=== PATIENT | female | born 1955 | race Two or more races ===

== ENCOUNTER → 2024-04-15 | Outpatient (CLI) | payer MEDICARE, SELFPAY ==
[2024-04-15 11:44] LABS: Collection Type, Urine Clean Catch
[2024-04-15 12:55] LABS: Basophils % (Auto) 0 % (0-2.5); Eosinophils % (Auto) 0 % (0-10); Hematocrit 34.9 % (36.0-46.0); Hemoglobin 11.5 g/dL (12.0-16.0); Immature Granulocytes % (Auto) 0 % (0-0); Immature Granulocytes Auto 0.01 Thou/mm3 (0.00-0.00); Lymphocytes # (Auto) 1.5 Thou/mm3 (1.0-4.8); Lymphocytes % (Auto) 29 % (10-50); Mean Corpuscular Volume 88 fL (80-100); Monocytes # (Auto) 0.3 Thou/mm3 (0.0-0.8); Monocytes % (Auto) 6 % (0-12); Neutrophils # (Auto) 3.2 Thou/mm3 (1.8-7.7); Neutrophils % (Auto) 64 % (37-80); Nucleated Red Blood Cell % 0 /100 WBC (0); Platelet Count 175 Thou/mm3 (140-440); RDW Standard Deviation 43.6 fL (36.4-46.3); Red Blood Count 3.97 Miln/mm3 (4.00-5.20)
[2024-04-15 13:16] LABS: Albumin, Serum 4.4 gm/dL (3.4-4.8); Anion Gap 10 (7-16); BUN/Creatinine Ratio 17 Ratio (12-20); Blood Urea Nitrogen 38 mg/dL (9-23); Calcium 9.1 mg/dL (8.3-10.6); Calcium (Corrected) 9.1 mg/dL (8.5-10.1); Chloride 102 mMol/L (98-107); Creatinine (Component) 2.3 mg/dL (0.6-1.3); Glucose 98 mg/dL (74-106); Osmolality,Calculated 284 (275-295); Phosphorous 4.8 mg/dL (2.4-5.1); Potassium 4.3 mMol/L (3.4-5.1); Sodium 138 mMol/L (136-145); eGFR 23 See Note
[2024-04-15 13:29] LABS: Bacteria,Urine Rare; Bilirubin,Urine Negative (Negative); Blood,Urine Trace (Negative); Clarity,Urine Turbid (Clear/Hazy); Color,Urine Yellow (Lt Yel-Yel); Glucose, Urine Negative (Negative); Ketones,Urine Negative (Negative); Leukocyte Esterase,Urine Positive (Negative); Nitrite,Urine Negative (Negative); Protein,Urine Trace (Neg - Trace); RBC,Urine 5 /hpf (0-3); Specific Gravity,Urine 1.015 (1.001-1.035); Squamous Epithelial Cell,Urine < 1 /hpf (0-5); Urobilinogen,Urine Negative mg/dL (0.0-1.0); WBC,Urine 720 /hpf (0-5)
[2024-04-15 14:40] LABS: Parathyroid Hormone Intact 73.2 pg/ml (18.5-88.0)
== END | disposition home or self-care (01) ==
LOC: COPL 11:15
PROVIDERS: PCP Internal Medicine; Referring Provider Internal Medicine Nephrology; Visit Provider Internal Medicine Nephrology
DX: E55.9 Vitamin D deficiency, unspecified (principal)
CPT/HCPCS: 36415; 80069; 81001; 82306; 83970; 85025

== ENCOUNTER 2024-04-25 09:17 | Emergency (ER) | payer MEDICARE, SELFPAY ==
[2024-04-25 09:40] VITALS: BP 161/82; PULSE 84; PULSE 92; RESP 20; TEMP 36.4; O2SAT 96
[2024-04-25 09:45] VITALS: BMI 22.2
[2024-04-25 09:54] VITALS: PULSE 80
--- NOTE | 2024-04-25 09:55 | EKG_ITS ---
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
--- NOTE | 2024-04-25 10:33 | XR_ITS ---
Examination: CT abdomen and pelvis without contrast. Coronal 3-D reconstructions. Sagittal 2-D reconstructions. Date and time of exam:April 25, 2024 1123 hours Comparison October 23, 2023 INDICATIONS: Bilateral flank pain nausea vomiting beginning this morning CTDI: vol (mGy): 5.18 DLP: (mGycm): 272 Technique: Axial images of the abdomen have been obtained, 3 mm slice thickness Intravenous contrast material has not been administered. Low dose protocols were performed. One or more of the following dose reduction techniques were used; automated exposure control, adjustment of the mA and/or KV according to patient size, use of iterative reconstruction technique. Findings: No focal liver or splenic lesions Mildly distended gallbladder No pancreatic mass Aorta normal size No renal or ureteral calculi, minimal hydronephrosis Significant colonic ileus, fluid-filled Small bowel loops also appear fluid distended Distended urinary bladder with retroverted uterus Urinary bladder wall thickened up to 4 mm Severe osteopenia with advanced disc narrowing L4-L5 IMPRESSION: Prominent colonic and less prominent small bowel ileus Recommend 3 way abdominal series follow-up Distended urinary bladder, clinical correlation advised with mild urinary bladder wall thickening No renal or ureteral calculi, minimal hydronephrosis
--- NOTE | 2024-04-25 10:37 | PD.EDBACK ---
ED Back Injury Pain RME/HPI General Chief Complaint: Back Pain/Injury Stated Complaint: N/V Time Seen by Provider: 04/25/24 10:00 Arrival date/time: 04/25/24 09:17 RME / HPI RME / HPI Narrative: Patient is a 68-year-old female with past medical history of hypertension, hypothyroidism, and CKD who came to the ED on 04/25/2024 due to bilateral flank pain with associated nausea, vomiting, and diarrhea which started around 8 am this morning. Patient endorsed 1 episode of diarrhea and vomiting of clear, yellow contents. She had a small coffee and donut this morning. Patient's present at bedside, states that patient has been having similar episodes for about 6 years with extensive workup done including CT scans, EGD, and colonoscopy but patient has not been diagnosed with any disorders other than possible irritable bowel syndrome. Patient takes Zofran as needed for nausea episodes and had Zofran x1 prior to arrival without improvement of symptoms. Related Data Home Medications ?Medication ?Instructions ?Recorded ?Confirmed Levothyroxine * (SYNTHROID *) 1 tab PO QDAY Thyroid ##30 02/23/17 10/23/23 valsartan 160 mg tablet 160 mg PO DAILY 10/23/23 10/23/23 ergocalciferol (vitamin D2) 1,250 1,250 mcg PO QWEEK 10/24/23 10/24/23 mcg (50,000 unit) capsule (Vitamin D2) tramadol 50 mg tablet 50 mg PO Q8H PRN Pain, Severe 10/24/23 10/24/23 Previous Rx's ?Medication ?Instructions ?Recorded ondansetron 4 mg disintegrating 4 mg PO Q8H PRN nausea and 10/25/23 tablet vomiting #20 tabs Allergies Allergy/AdvReac Type Severity Reaction Status Date / Time No Known Allergies Allergy Verified 10/25/23 20:24 Past Medical History Past Medical History Comments PMH COMMENT: Past Medical History: Hypertension, hypothyroidism, and CKD Family History: No family history of kidney stones, Surgical History: , appendectomy, urethral dilation Social History: Denies history of smoking, denies current alcohol use, denies recreational drug use Current Medications: (Source: ) Allergies: No known drug allergies Course Orders Category Date Time Status EKG (ED ONLY) *Do not use* NOW Care 04/25/24 09:55 Completed Zeng [Urinary Catheter] QS Care 04/25/24 12:[address] abdomen pelvis wo con Stat Exams 04/25/24 10:33 Completed EKG (ED Only) Stat Exams 04/25/24 09:55 Draft XR abdomen series w chest 1V Stat Exams 04/25/24 12:04 Completed CBC Stat Lab 04/25/24 10:50 Completed CMP [Comprehensive Metabolic Panel] Stat Lab 04/25/24 10:50 Completed Lactic Acid [Lactate (Lactic Acid)] Stat Lab 04/25/24 10:50 Completed Lipase Stat Lab 04/25/24 10:50 Completed TSH [Thyroid Stimulating Hormone] Stat Lab 04/25/24 10:50 Completed Troponin I Stat Lab 04/25/24 10:50 Completed Urinalysis, C/S if Indicated Stat Lab 04/25/24 11:16 Completed Urine Culture Stat Lab 04/25/24 11:16 Received HYDROmorphone INJ [Dilaudid Inj] Med 04/25/24 12:14 Discontinued 0.5 mg IVP X1 ONE HYDROmorphone INJ [Dilaudid Inj] Med 04/25/24 10:30 Discontinued 1 mg IVP X1 ONE Ondansetron Inj [Zofran Inj] Med 04/25/24 10:30 Discontinued 4 mg IV X1 ONE Ringers Lactated 1000 ml [Lactated Ringers] 1,000 ml Med 04/25/24 12:14 Discontinued IV 999 mls/hr cefTRIAXone [Rocephin] 1,000 mg Med 04/25/24 14:30 Discontinued Sodium Chloride 0.9% (P) [Ns 0.9% (P)] 50 ml IV X1 cefTRIAXone/D5w 1gm IV premix [Rocephin/D5w 1gm IV Med 04/25/24 12:33 Discontinued premix] 50 ml IV X1 Vital Signs Vital signs: Vital Signs Temperature 97.5 F 04/25/24 09:40 Pulse Rate 84 04/25/24 09:40 Respiratory Rate 20 04/25/24 09:40 Blood Pressure 161/82 H 04/25/24 09:40 Pulse Oximetry (%) 96 04/25/24 09:40 Oxygen Delivery Method Room Air 04/25/24 09:40 Back Pain / Injury Medications / Prescriptions Medication administrations:: Medication Administration History Discontinued Medications Hydromorphone HCl (Hydromorphone Inj 2 Mg/Ml Vial) 1 mg IVP X1 ONE Stop: 04/25/24 10:31 Last Admin: 04/25/24 10:51 Dose: 1 mg Documented By: TERESA Hydromorphone HCl (Hydromorphone Inj 2 Mg/Ml Vial) 0.5 mg IVP X1 ONE Stop: 04/25/24 12:15 Last Admin: 04/25/24 12:27 Dose: 0.5 mg Documented By: SUSHIL Lactated Ringer's (Lactated Ringers) 1,000 mls @ 999 mls/hr IV .Q1H1M ONE Stop: 04/25/24 13:14 Last Infusion: 04/25/24 13:49 Dose: Infused Documented By: Admin: 04/25/24 12:29 Dose: 999 mls/hr Documented By: SUSHIL Ceftriaxone Sodium/Dextrose (Rocephin/D5w 1gm Iv Premix) 50 mls @ 100 mls/hr IV X1 ONE Stop: 04/25/24 13:02 Last Admin: 04/25/24 14:34 Dose: Not Given Documented By: SUSHIL Non-Admin Reason: Duplicate Medication on eMAR Ceftriaxone Sodium 1,000 mg/ (Sodium Chloride) 50 mls @ 100 mls/hr IV X1 ONE Stop: 04/25/24 14:59 Last Infusion: 04/25/24 15:30 Dose: Infused Documented By: Admin: 04/25/24 14:36 Dose: 100 mls/hr Documented By: SUSHIL Ondansetron HCl (Ondansetron Inj 2 Mg/Ml Inj 2 Ml) 4 mg IV X1 ONE; Protocol Stop: 04/25/24 10:31 Last Admin: 04/25/24 10:50 Dose: 4 mg Documented By: TERESA Discharge Plan Prescriptions/Referrals Prescriptions/Med Rec: No Action Levothyroxine * (SYNTHROID *) 175 MCG tablet 1 tab PO QDAY Qty: 30 valsartan 160 mg tablet 160 mg PO DAILY tramadol 50 mg Tablet 50 mg PO Q8H PRN (Reason: Pain, Severe) ergocalciferol (vitamin D2) [Vitamin D2] 1,250 mcg (50,000 unit) Capsule 1,250 mcg PO QWEEK ondansetron 4 mg tablet,disintegrating 4 mg PO Q8H PRN (Reason: nausea and vomiting) Qty: 20 0RF Referrals: Eva Wahl MD [Primary Care Provider] - In 1 week Patient/Caregiver Discharge Instructions Print Language: Kazakh
[2024-04-25] MEDS: ONDANSETRON INJ 2 MG/ML INJ 2 ML 4 MG IV (10:50)
[2024-04-25] MEDS: HYDROmorphone INJ 2 MG/ML VIAL 1 MG IVP (10:51)
[2024-04-25 10:56] LABS: Lactate (Lactic Acid) 1.5 mMol/L (0.4-2.0)
[2024-04-25 11:00] VITALS: BP 161/83; PULSE 90; RESP 12; TEMP 36.7; O2SAT 97
[2024-04-25 11:05] LABS: Basophils % (Auto) 0 % (0-2.5); Eosinophils % (Auto) 0 % (0-10); Hematocrit 33.3 % (36.0-46.0); Hemoglobin 11.6 g/dL (12.0-16.0); Immature Granulocytes % (Auto) 0 % (0-0); Immature Granulocytes Auto 0.02 Thou/mm3 (0.00-0.00); Lymphocytes # (Auto) 0.7 Thou/mm3 (1.0-4.8); Lymphocytes % (Auto) 10 % (10-50); Mean Corpuscular HGB Conc 34.8 g/dl (31.0-37.0); Mean Corpuscular Volume 86 fL (80-100); Monocytes # (Auto) 0.3 Thou/mm3 (0.0-0.8); Monocytes % (Auto) 4 % (0-12); Neutrophils # (Auto) 5.6 Thou/mm3 (1.8-7.7); Neutrophils % (Auto) 85 % (37-80); Nucleated Red Blood Cell % 0 /100 WBC (0); Platelet Count 168 Thou/mm3 (140-440); RDW Standard Deviation 42.6 fL (36.4-46.3); Red Blood Count 3.87 Miln/mm3 (4.00-5.20); White Blood Count 6.6 Thou/mm3 (3.6-11.0)
[2024-04-25 11:21] LABS: Collection Type, Urine Catheter
[2024-04-25 11:26] LABS: Alanine Aminotransferase 21 U/L (10-49); Albumin, Serum 4.3 gm/dL (3.4-4.8); Albumin/Globulin Ratio 1.6 (1.2-2.2); Alkaline Phosphatase 82 U/L (46-116); Anion Gap 11 (7-16); Aspartate Amino Transferase 23 U/L (0-34); BUN/Creatinine Ratio 14 Ratio (12-20); Bilirubin,Total 0.5 mg/dL (0.3-1.2); Blood Urea Nitrogen 27 mg/dL (9-23); Calcium 9.7 mg/dL (8.3-10.6); Calcium (Corrected) 9.7 mg/dL (8.5-10.1); Carbon Dioxide 19.1 mMol/L (20.0-31.0); Chloride 110 mMol/L (98-107); Estimated Creatinine Clearance 18.6 mL/min (>60); Globulin 2.7 gm/dL (2.3-3.5); Glucose 147 mg/dL (74-106); Lipase 48 U/L (12-53); Osmolality,Calculated 287 (275-295); Potassium 4.5 mMol/L (3.4-5.1); Sodium 140 mMol/L (136-145); Thyroid Stimulating Hormone 2.56 uIU/mL (0.55-4.78); Troponin I < 0.020 ng/mL (0.0-0.045); eGFR 27 See Note
[2024-04-25 11:34] LABS: Bacteria,Urine 4+; Bilirubin,Urine Negative (Negative); Blood,Urine 1+ (Negative); Clarity,Urine Clear (Clear/Hazy); Color,Urine Lt-Yellow (Lt Yel-Yel); Glucose, Urine Negative (Negative); Ketones,Urine Trace (Negative); Leukocyte Esterase,Urine Positive (Negative); Nitrite,Urine Negative (Negative); PH,Urine 5.5 (5.0-7.0); Protein,Urine Trace (Neg - Trace); RBC,Urine 1 /hpf (0-3); Squamous Epithelial Cell,Urine < 1 /hpf (0-5); Urobilinogen,Urine Negative mg/dL (0.0-1.0); WBC,Urine 33 /hpf (0-5)
[2024-04-25 11:38] LABS: Culture Indicated,Urine Yes
--- NOTE | 2024-04-25 12:04 | XR_ITS ---
Examination: Abdominal series 3 views including upright AP chest TECHNIQUE: AP upright chest, AP upright AP supine abdomen total 3 views Exam date and time: April 25, 2024 1222 hours INDICATIONS: Abdominal pain FINDINGS: Significant colonic ileus Mild small bowel ileus No definite obstruction No free air Normal heart size Lungs are clear IMPRESSION: Significant colonic ileus Mild small bowel ileus
[2024-04-25] MEDS: HYDROmorphone INJ 2 MG/ML VIAL 0.5 MG IVP (12:27)
[2024-04-25] MEDS: RINGERS LACTATED 1000 ML 1,000 ML 999 ML IV (12:29)
[2024-04-25] MEDS: cefTRIAXone 1,000 MG in SODIUM CHLORIDE 0.9% (P) 50 ML 100 MG IV (14:36)
--- NOTE | 2024-04-25 15:01 | PD.EDADDENDU ---
Emergency Room Addendum Addendum Narrative: The resident physician Dr. Hammond consulted with me regarding this patient. The patient is nausea and vomiting. Abdomen is distended. CT abdomen and pelvic and abdominal series x-rays were done. Please see report from Dr. Brant Castano. I think the patient should be admitted for further evaluation treatment IV fluid and n.p.o. and NG tube. However when I spoke to Dr. mckoy, hospitalist on-call. He absolutely rejected my request for admission. And he is very adamant that the patient can go home he said that he could write me a note Diagnosis: Abdominal distention Significant colonic ileus Small bowel ileus Vomiting Urinary retention 1600ml Condition: Admission was rejected by hospitalist dr mckoy
--- NOTE | 2024-04-25 16:42 | ESCONSULT_ITS ---
<Statement entered by Zhen Moran MD - 05/08/24 08:00> I reviewed above note and agree with findings and plans. I have also personally examined the patient with medicine team and went over assessment and plan with medical team including management intern and resident physician. HPI Data of Consult Primary Care Provider: Eva Wahl MD Consult Narrative History of present illness: Mariela is a 68 y/o female with PMHx hypertension, hypothyroidism, CKD, ? IBS, chronic UTI, urinary retention (and self caths), hemorrhagic cystitis (2018), and hypothyroidism who is here for an evaluation of nausea, vomiting, diarrhea, and abdominal pain (radiating to the back) and distention. Patient reports she has been having on and off symptoms of nausea and vomiting and diarrhea since 2021. She reports that she has lost about 90 pounds within that timeframe. She says that she has trouble eating and has not been able to enjoy typical foods, and usually eats Jell-O, soups and broths. She says that she was able to pass gas this morning and had a bowel movement that was diarrhea consistent. She is just that she has been having nausea and some vomiting that was nonbloody as well but says she had 3 episodes. She says she has had similar symptoms to this including 1 in October she was admitted for similar symptoms and was not given an NG tube and impossible discussion included diagnosis of SBO but it seems that patient did not get NG tube nor surgical intervention. She denies any recent travel, and sicknesses. She denies any associated fever, chills, chest pain, shortness of breath. She does say that she deals with chronic urinary retention and is going to see a subspecialty urologist in which her urologist is going to send her to in [place]. She says she still has not done this. She also says that she self caths herself every day. She also says that when she was in the 70s that she had to have some form of catheterization done but does not exactly member what happened. She currently says that her abdominal pain/distention has improved after she got a Zeng catheter in. She also says that she had a colonoscopy not too long ago in 2016 and 2019 in which they had diagnosed her with IBS but had no other pertinent findings. She is in between switching ep technologist at this time. She is also seeing LOUISE Infante in [place] currently. She also says that she is post get a CT scan of her abdomen pelvis to be done by her primary care doctor. She also says that she has chronic UTIs and takes Bactrim every day for it. She has no other complaints at this time ED Course: Patient arrived with a temperature of 97.5, heart rate 84, respiratory rate of 20, blood pressure 161/82, saturating 96% room air. She was worked up was found to have a white count of 6.6, hemoglobin 11.6, sodium 140, potassium 4.5, chloride 110, bicarb of 19, BUN/creatinine of 27 2.0, glucose of 147, lactate of 1.5, troponin negative x 1, AST ALT 23 and 21 respectively, lipase of 48. CT abdomen pelvis showed distended bladder and prominent small bowel ileus but no stones. Chest abdomen x-ray showed significant colonic ileus, mild small bowel ileus. Urine analysis showed +4 bacteria. She was given Dilaudid 1.5 mg and medicine was consulted. PMHx: As above Surgeries: Appendectomy, Cystoscopy Meds: Vitamin D, Bactrim, tramadol, Zofran, ferrous sulfate, Synthroid 150 mcg, folic acid, valsartan 160, diphenoxylate atropine Allergies: No known allergies Family history: Mother had diabetes, stroke and heart attack. Social history: Born in [facility], lived in [place] throughout her entire life. 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 She retired about 3 years ago because she was sick. She has no kids, however has been to her . She lives in [place]. Denies any drug history including IV and oral, was never a heavy drinker no smoking history. Limited exercise due to patient being weak. Ate mainly soft foods. cc:: cc: Review of Systems Review of Systems Narrative Review of Systems: 12 point ROS was reviewed and otherwise negative unless stated directly in the HPI Exam Vital Signs Temp Pulse Resp BP Pulse Ox O2 Del Method 98.1 F 90 12 161/83 H 97 Room Air 04/25/24 11:00 04/25/24 11:00 04/25/24 11:04/25/24 11:00 04/25/24 11:00 04/25/24 11:00 Narrative Exam General: AAOx3, NAD, pleasant woman, looks frail, low muscle density HEENT: Dry mucous membranes, conjunctiva clear, EOMI, PERRLA, Cardiovascular: S1, S2, radial pulses +2 bilat, RRR, no clavicular muscle Pulmonary: CTAB bilat no cough, no wheezing GI: Bowels sounds heard, abdomen soft, no tenderness to palpitation : Zeng catheter in Extremities: No presence of trace or pitting edema in lower extremities bilaterally, dorsalis pedis pulses +2 bilaterally Neuro: AAOx3, no focal motor or sensory deficits in the UE or LE bilat Psych: Good judgement, thought and behavior. Cooperative Results Labs 04/25/24 10:50 04/25/24 10:50 Labs: Short CBC 04/25/24 Range/Units 10:50 WBC 6.6 (3.6-11.0) Thou/mm3 Hgb 11.6 L (12.0-16.0) g/dL Hct 33.3 L (36.0-46.0) % Plt Count 168 (140-440) Thou/mm3 BMP 04/25/24 10:50 Sodium 140 Potassium 4.5 Chloride 110 H Carbon Dioxide 19.1 L BUN 27 H Creatinine 2.0 H Glucose 147 H Calcium 9.7 Cardiac Enzymes 04/25/24 Range/Units 10:50 Troponin I < 0.020 (0.0-0.045) ng/mL Liver Function 04/25/24 Range/Units 10:50 Total Bilirubin 0.5 (0.3-1.2) mg/dL AST 23 (0-34) U/L ALT 21 (10-49) U/L Alkaline Phosphatase 82 (46-116) U/L Albumin 4.3 (3.4-4.8) gm/dL Urine 04/25/24 Range/Units 11:16 Urine Color Lt-Yellow (Lt Yel-Yel) Urine Clarity Clear (Clear/Hazy) Urine pH 5.5 (5.0-7.0) Ur Specific Inez 1.010 (1.001-1.035) Urine Protein Trace (Neg - Trace) Urine Glucose (UA) Negative (Negative) Quality Measures Quality Measures VTE prophylaxis Advance care planning discussed with:: patient Medications Home Medications and Allergies Home Medications ?Medication ?Instructions ?Recorded ?Confirmed ?Type Levothyroxine * (SYNTHROID *) 1 tab PO QDAY Thyroid ## 30 02/23/17 10/23/23 History valsartan 160 mg tablet 160 mg PO DAILY 10/23/23 History ergocalciferol (vitamin D2) 1,250 1,250 mcg PO QWEEK 0 10/24/23 10/24/23 History mcg (50,000 unit) capsule (Vitamin D2) tramadol 50 mg tablet 50 mg PO Q8H PRN Pain, Sever e 10/24/23 10/24/23 History Allergies Allergy/AdvReac Type Severity Reaction Status Date / Time No Known Allergies Allergy Verified 10/25/23 20:24 Visit Medications Discontinued Medications Hydromorphone HCl (Hydromorphone Inj 2 Mg/Ml Vial) 1 mg IVP X1 ONE Stop: 04/25/24 10:31 Last Admin: 04/25/24 10:51 Dose: 1 mg Hydromorphone HCl (Hydromorphone Inj 2 Mg/Ml Vial) 0.5 mg IVP X1 ONE Stop: 04/25/24 12:15 Last Admin: 04/25/24 12:27 Dose: 0.5 mg Lactated Ringer's (Lactated Ringers) 1,000 mls @ 999 mls/hr IV .Q1H1M ONE Stop: 04/25/24 13:14 Last Infusion: 04/25/24 13:49 Dose: Infused Ceftriaxone Sodium/Dextrose (Rocephin/D5w 1gm Iv Premix) 50 mls @ 100 mls/hr IV X1 ONE Stop: 04/25/24 13:02 Last Admin: 04/25/24 14:34 Dose: Not Given Ceftriaxone Sodium 1,000 mg/ (Sodium Chloride) 50 mls @ 100 mls/hr IV X1 ONE Stop: 04/25/24 14:59 Last Admin: 04/25/24 14:36 Dose: 100 mls/hr Ondansetron HCl (Ondansetron Inj 2 Mg/Ml Inj 2 Ml) 4 mg IV X1 ONE; Protocol Stop: 04/25/24 10:31 Last Admin: 04/25/24 10:50 Dose: 4 mg Assessment & Plan Plan Mariela is a 68 y/o female with PMHx hypertension, hypothyroidism, CKD, ? IBS, chronic UTI, urinary retention (and self caths), hemorrhagic cystitis (2019), and hypothyroidism who is here for an evaluation of nausea, vomiting, diarrhea, and abdominal pain (radiating to the back) and distention. #Chronic urinary retention #History of IBS #Abdominal distention, resolved?SBO ruled out Patient endorses a history of chronic urinary retention is supposed to see a subspecialist in urology, but is pending referral from her current urologist in [place] She does say that she self caths herself for chronic urinary retention Once given Zeng catheter, patient's symptoms had improved drastically and abdominal distention went down On imaging it was shown that her bladder was distended and we believe at this time that abdominal distention was related to possible bladder outlet obstruction As patient was passing gas, had bowel movement this morning that was diarrhea, we have low suspicion that patient has small bowel obstruction Patient has been admitted recently here before in October for similar symptoms and did not have small bowel obstruction in the past on most recent visit For patient's nausea and vomiting, and oral intake, we believe this is chronic and and likely related to IBS We recommend patient to continue seeing outpatient GI for further management of symptoms As patient is able to tolerate p.o. we do not recommend admission at this time Lipase was unremarkable, able to rule out pancreatitis as well Plan: ?Recommend to continue with Zeng upon discharge before she sees urologist ?Feed patient to see if she tolerates p.o. ?Continue taking medicines as prescribed ?Follow-up with urology ?Follow-up with GI ?Return to ER if symptoms worsen or return Patient seen and care discussed with my senior resident, Dr. Parra , and my attending physician, Dr. Luisa Chase, PGY-1
[2024-04-25 17:00] VITALS: BP 116/68; PULSE 87; RESP 17; TEMP 36.7; O2SAT 98
[2024-04-25 18:37] VITALS: PULSE 78; RESP 16; O2SAT 99
== END 2024-04-25 18:38 | disposition home or self-care (01) ==
PROVIDERS: Student in an Organized Health Care Education/Training Program; Emergency Provider Emergency Medicine; PCP Internal Medicine
DX: K56.7 Ileus, unspecified (principal); R33.9 Retention of urine, unspecified; R94.31 Abnormal electrocardiogram [ECG] [EKG]; I12.9 Hypertensive chronic kidney disease with stage 1 through stage 4 chronic kidney disease, or unspecified chronic kidney disease; N18.9 Chronic kidney disease, unspecified
CPT/HCPCS: 51702; 36415; 74022; 74176; 80053; 81001; 83605; 83690; 84443; 84484; 85025; 87077; 87086; 87186; 93005; 96361; 96365; 96375; 96376; 99284; J0696; J2405; J3490; J7050; J7120

== ENCOUNTER → 2024-05-14 | Outpatient (CLI) | payer MEDICARE, SELFPAY ==
--- NOTE | 2024-05-14 15:30 | XR_ITS ---
Examination: Screening digital mammography, bilateral Computer aided detection 3-D breast Tomosynthesis, bilateral Date and time of exam: May 14, 2024 1531 hours Compared to mammograms dating to September 28, 2015 Indication: Screening Technique: Nonmagnified MLO, CC views of the breasts to been obtained, reconstructed from 3-D Tomosynthesis images. R2 computer aided detection program utilized for evaluation of suspicious masses and/or abnormal calcifications. 3-D Tomosynthesis images obtained. Findings: The breasts are extremely dense, which limits the sensitivity of mammography Again noted focal asymmetry, likely glandular tissue upper outer right breast Benign calcifications Impression: BI-RADS Category 0: Incomplete: Need additional imaging evaluation Recommend bilateral breast sonography follow-up given the extremely dense breast architecture and focal asymmetry in the upper outer right breast
== END | disposition home or self-care (01) ==
LOC: CDIM 15:21
PROVIDERS: Referring Provider Internal Medicine; Visit Provider Internal Medicine
DX: Z12.31 Encounter for screening mammogram for malignant neoplasm of breast (principal); R92.343 Mammographic extreme density, bilateral breasts; N64.89 Other specified disorders of breast
CPT/HCPCS: 77063; 77067

== ENCOUNTER → 2024-05-20 | Outpatient (CLI) | payer MEDICARE, SELFPAY ==
[2024-05-20 11:32] LABS: Basophils % (Auto) 0 % (0-2.5); Eosinophils % (Auto) 1 % (0-10); Hematocrit 31.3 % (36.0-46.0); Hemoglobin 10.4 g/dL (12.0-16.0); Immature Granulocytes % (Auto) 0 % (0-0); Immature Granulocytes Auto 0.02 Thou/mm3 (0.00-0.00); Lymphocytes # (Auto) 1.2 Thou/mm3 (1.0-4.8); Lymphocytes % (Auto) 23 % (10-50); Mean Corpuscular HGB Conc 33.2 g/dl (31.0-37.0); Mean Corpuscular Hemoglobin 29.5 pg (25.0-35.0); Mean Corpuscular Volume 89 fL (80-100); Monocytes # (Auto) 0.4 Thou/mm3 (0.0-0.8); Monocytes % (Auto) 7 % (0-12); Neutrophils # (Auto) 3.6 Thou/mm3 (1.8-7.7); Neutrophils % (Auto) 69 % (37-80); Nucleated Red Blood Cell % 0 /100 WBC (0); Platelet Count 182 Thou/mm3 (140-440); RDW Standard Deviation 45.1 fL (36.4-46.3); Red Blood Count 3.53 Miln/mm3 (4.00-5.20); White Blood Count 5.2 Thou/mm3 (3.6-11.0)
[2024-05-20 11:51] LABS: Amylase 134 U/L (30-118); Anion Gap 7 (7-16); BUN/Creatinine Ratio 14 Ratio (12-20); Blood Urea Nitrogen 21 mg/dL (9-23); Carbon Dioxide 27.1 mMol/L (20.0-31.0); Chloride 106 mMol/L (98-107); Creatinine (Component) 1.5 mg/dL (0.6-1.3); Glucose 91 mg/dL (74-106); Lipase 56 U/L (12-53); Osmolality,Calculated 282 (275-295); Phosphorous 4.5 mg/dL (2.4-5.1); Potassium 4.3 mMol/L (3.4-5.1); Sodium 140 mMol/L (136-145); eGFR 38 See Note
[2024-05-20 11:58] LABS: Vitamin D 25 Hydroxy Total 82.5 ng/mL (7.3-40.2)
[2024-05-20 11:59] LABS: Parathyroid Hormone Intact 62.9 pg/ml (18.5-88.0)
== END | disposition home or self-care (01) ==
LOC: COPL 11:02
PROVIDERS: PCP Internal Medicine; Referring Provider Internal Medicine Nephrology; Visit Provider Internal Medicine Nephrology
DX: K58.9 Irritable bowel syndrome, unspecified (principal); I10 Essential (primary) hypertension; N39.0 Urinary tract infection, site not specified; R10.9 Unspecified abdominal pain
CPT/HCPCS: 36415; 80069; 82150; 82306; 83690; 83970; 85025

== ENCOUNTER → 2024-06-13 | Outpatient (CLI) | payer MEDICARE, SELFPAY ==
--- NOTE | 2024-06-13 09:00 | XR_ITS ---
Examination: Breast ultrasound complete, bilateral Date and time of exam: June 13, 2024 0917 hours INDICATIONS: 10:00 focal asymmetry right breast on mammogram January 14, 2024 Technique: Real-time grayscale ultrasonographic imaging bilateral breasts, including all 4 quadrants as well as nipple retroareolar and axillary regions. Findings: Sonographic images right breast 9:00 nodule circumscribed 8 x 5 mm Sonographic images left breast 1:00 circumscribed nodule 8 x 6 mm IMPRESSION: BI-RADS Category 3: Probably benign findings Bilateral breast sonography follow-up in 6 months is needed to document stability of solid nodules described above
== END | disposition home or self-care (01) ==
LOC: CDIM 08:40
PROVIDERS: PCP Internal Medicine; Referring Provider Internal Medicine; Visit Provider Internal Medicine
DX: N63.15 Unspecified lump in the right breast, overlapping quadrants (principal); N63.21 Unspecified lump in the left breast, upper outer quadrant
CPT/HCPCS: 76641

== ENCOUNTER → 2024-07-31 | Outpatient (CLI) | payer MEDICARE, SELFPAY ==
--- NOTE | 2024-07-31 14:10 | XR_ITS ---
Examination: Bone densitometry Date and time of exam:July 31, 2024 1419 hours INDICATIONS: Menopause age 51 calcium 2 months Technique: Lumbar spine and hip total bone mineralization values of an calculated. Peak reference and age match control results have been displayed. Findings: Lumbar spine total bone mineralization is0.840 gm/cm2. This is 1.9 standard deviations below peak reference. This is 0.1 standard deviations above age-matched controls. Hip total bone mineralization is 0.666 gm/cm2 This is 2.3 standard deviations below peak reference. This is 0.9 standard deviations below age-matched controls Impression: There is osteopenia based on lumbar spine measurements. There is osteoporosis based on hip measurements Lumbar mineralization is decreased 20.2% compared with September 21, 2009 Hip mineralization is decreased 28.9% compared with September 21, 2009
== END | disposition home or self-care (01) ==
LOC: CDIM 13:56
PROVIDERS: Referring Provider Internal Medicine; Visit Provider Internal Medicine
DX: M85.88 Other specified disorders of bone density and structure, other site (principal); M81.0 Age-related osteoporosis without current pathological fracture
CPT/HCPCS: 77080

== ENCOUNTER 2024-08-13 12:39 | Observation (INO) | payer MEDICARE, SELFPAY ==
[2024-08-13 13:19] VITALS: BP 91/59; PULSE 93; RESP 20; TEMP 37; O2SAT 99
--- NOTE | 2024-08-13 13:19 | XR_ITS ---
Examination: CT abdomen and pelvis without contrast. Coronal 3-D reconstructions. Sagittal 2-D reconstructions. Date and time of exam:01/13/2025 1411 hours Comparison April 25, 2024 INDICATIONS: Generalized abdominal pain vomiting and nausea beginning one week ago CTDI: vol (mGy): 5.35 DLP: (mGycm): 284 Technique: Axial images of the abdomen have been obtained, 3 mm slice thickness Intravenous contrast material has not been administered. Low dose protocols were performed. One or more of the following dose reduction techniques were used; automated exposure control, adjustment of the mA and/or KV according to patient size, use of iterative reconstruction technique. Findings: Nodular parenchymal disease in the right middle lobe image 28 No focal liver or splenic lesions No definite gallstones Aorta in the abdomen is not enlarged No pancreatic mass Multiple fluid distended small bowel loops No diverticulitis No hernia defect Appendix appears partially visualized and not enlarged Advanced disc narrowing L4-L5 IMPRESSION: Small bowel obstruction pattern, consider Gastrografin small bowel series follow-up
--- NOTE | 2024-08-13 13:19 | PD.EDRME ---
Rapid Medical Screening Exam RME Arrival date/time: 08/13/24 12:39 68-year-old female presents to the emergency department today complains of abdominal pain nausea vomiting Chief Complaint: Flu Like Symptoms
[2024-08-13 13:52] LABS: Basophils % (Auto) 0 % (0-2.5); Eosinophils % (Auto) 0 % (0-10); Hematocrit 33.6 % (36.0-46.0); Hemoglobin 11.7 g/dL (12.0-16.0); Immature Granulocytes % (Auto) 1 % (0-0); Immature Granulocytes Auto 0.11 Thou/mm3 (0.00-0.00); Lymphocytes # (Auto) 0.9 Thou/mm3 (1.0-4.8); Lymphocytes % (Auto) 5 % (10-50); Mean Corpuscular HGB Conc 34.8 g/dl (31.0-37.0); Mean Corpuscular Hemoglobin 29.5 pg (25.0-35.0); Mean Corpuscular Volume 85 fL (80-100); Monocytes # (Auto) 0.8 Thou/mm3 (0.0-0.8); Monocytes % (Auto) 4 % (0-12); Neutrophils # (Auto) 18.3 Thou/mm3 (1.8-7.7); Neutrophils % (Auto) 91 % (37-80); Nucleated Red Blood Cell % 0 /100 WBC (0); Platelet Count 134 Thou/mm3 (140-440); RDW Standard Deviation 39.7 fL (36.4-46.3); Red Blood Count 3.97 Miln/mm3 (4.00-5.20); White Blood Count 20.2 Thou/mm3 (3.6-11.0)
[2024-08-13 14:08] LABS: Collection Type, Urine Clean Catch
[2024-08-13 14:08] LABS: Alanine Aminotransferase 14 U/L (10-49); Albumin, Serum 4.3 gm/dL (3.4-4.8); Alkaline Phosphatase 83 U/L (46-116); Anion Gap 13 (7-16); Aspartate Amino Transferase 22 U/L (0-34); BUN/Creatinine Ratio 19 Ratio (12-20); Bilirubin,Total 0.7 mg/dL (0.3-1.2); Blood Urea Nitrogen 47 mg/dL (9-23); Calcium 8.7 mg/dL (8.3-10.6); Calcium (Corrected) 8.7 mg/dL (8.5-10.1); Chloride 96 mMol/L (98-107); Creatinine (Component) 2.5 mg/dL (0.6-1.3); Globulin 2.1 gm/dL (2.3-3.5); Glucose 158 mg/dL (74-106); Lipase 116 U/L (12-53); Osmolality,Calculated 294 (275-295); Potassium 4.1 mMol/L (3.4-5.1); Sodium 140 mMol/L (136-145); Total Protein 6.4 gm/dL (5.7-8.2); eGFR 21 See Note
[2024-08-13 14:42] LABS: Bacteria,Urine 4+; Bilirubin,Urine Negative (Negative); Blood,Urine Trace (Negative); Color,Urine Yellow (Lt Yel-Yel); Glucose, Urine Negative (Negative); Ketones,Urine Negative (Negative); Leukocyte Esterase,Urine Positive (Negative); Nitrite,Urine Negative (Negative); PH,Urine 7.5 (5.0-7.0); Protein,Urine Trace (Neg - Trace); RBC,Urine 7 /hpf (0-3); Specific Gravity,Urine 1.014 (1.001-1.035); Squamous Epithelial Cell,Urine 1 /hpf (0-5); Urobilinogen,Urine Negative mg/dL (0.0-1.0); WBC,Urine 350 /hpf (0-5)
[2024-08-13 15:16] LABS: Clarity,Urine Hazy (Clear/Hazy); Culture Indicated,Urine Yes
--- NOTE | 2024-08-13 15:34 | PC.NURSE ---
PT CAME IN DUE TO GEN ABD DISTENTION AND NAUSEA WITH VOMITING AND DIARRHEA THAT HAS BEEN WORSE FOR THE PAST FEW MONTHS BUT BEEN FOR A FEW YEARS WHERE SHE HAS BEEN LOSING WEIGHT. PT ALSO HAS LOST OF VOMITING AT MIDNIGHT AND THAT IS WHAT BROUGHT HER IN TODAY. PT HAS APPT AT [facility] ON SUNDAY BUT COULD NOT WAIT DUE TO HER S/S. PT PLACED ON MONITOR AND PULSE OX. SISTER AT BEDSIDE.
[2024-08-13 15:41] VITALS: BP 108/56; PULSE 99; RESP 19; TEMP 37.2; O2SAT 98
[2024-08-13] MEDS: cefTRIAXone/D5w 1gm IV premix 1 GM/50 ML BAG IV (16:17)
[2024-08-13] MEDS: SODIUM CHLORIDE 0.9% 1000 ML 1,000 ML 999 ML IV (16:18)
[2024-08-13] MEDS: ONDANSETRON ODT 4 MG TABRAP PO (16:19)
[2024-08-13 16:33] VITALS: BP 100/64; PULSE 91; RESP 17; TEMP 37; O2SAT 96
--- NOTE | 2024-08-13 16:43 | XR_ITS ---
Examination: Small bowel series with KUB AP abdomen 3 views Date and time: August 13, 2024 1739 hours INDICATIONS: Abdominal pain and distention this week, small bowel obstruction pattern on CT abdomen and pelvis August 13, 2024 TECHNIQUE AND FINDINGS: Patient received 120 cc Gastrografin through the orogastric tube, immediate 30 minute 1 hour films obtained Contrast remains in the stomach IMPRESSION: Small bowel obstruction pattern. Recommend follow-up films 8:00 PM, 10:00 PM, 1:00 AM, 4:00 AM
--- NOTE | 2024-08-13 16:44 | ESHP_ITS ---
<Statement entered by Zhen Moran MD - 08/21/24 13:33> I reviewed above note and agree with findings and plans. I have also personally examined the patient with medicine team and went over assessment and plan with medical team including staff internist office based only and resident physician. Documentation for date of: 08/13/24 HPI History of Present Illness History of present illness: Mariela Rehman is a 68-year-old female with a past medical history of recurrent SBO, chronic UTIs, urinary retention (self-catheterization, follows urologist in [place]), hypothyroidism, hypertension, and CKD (follows Dr. Shafer) who presents with chief complaint of nausea, vomiting, abdominal pain. She states that she has had the symptoms since 08/04 but her last bowel movement was this morning and passing gas but CT A/P in the ED showed small bowel obstruction pattern. Given history of urinary retention, patient states that at times she believes that it may contribute to her recurrent obstructions. She states that she self caths herself every day, around 3 times per day. Attributes her recurrent urinary tract infections and urological issues from complications after . Her only abdominal surgery is an appendectomy many years ago. Of note, patient does have an appointment at [place] on Sunday regarding her recurrent SBO's. In ED, vital signs stable. CBC showed leukocytosis of 20 and chronic normocytic anemia. CHEM panel showed creatinine of 2.5, baseline appears to be around 1.7- 2.[address] Shafer, lipase 116 but no evidence of pancreatitis on imaging patient does not describe epigastric pain that radiates to the back. UA showed 350 WBC, 7 RBC, 4+ bacteria, LE positive. CT A/P showed small bowel obstruction pattern as mentioned above. PMHx: recurrent SBO, chronic UTIs, urinary retention (self-catheterization, follows urologist in [place]), hypothyroidism, hypertension, and CKD (follows Dr. Shafer) Medications: TMP-SMX, Zofran, levothyroxine, tramadol, tizanidine, diphenoxylate-atropine SHx: Born in [facility], previously worked in [email or web address] and retired 3 years ago due to illness, denies any drug history, alcohol consumption, or smoking PSHx: appendectomy Review of Systems Review of Systems Systems Reviewed: All systems reviewed, normal except as documented Exam Vital Signs Temp Pulse Resp BP Pulse Ox O2 Del Method 98.6 F 91 17 100/64 96 Room Air 08/13/24 16:33 08/13/24 16:33 08/13/24 16:33 08/13/24 16:33 08/13/24 16:33 08/13/24 16:33 Narrative Exam General: AOx3, no acute distress, able to speak full sentences HEENT: NC/AT, mucous membranes moist, bilateral sclera anicteric Cardiovascular: regular rate and rhythm, S1/S2 present, no murmurs appreciated Pulmonary: clear to auscultation bilaterally, no rales/rhonchi/wheezes Abdominal: soft, non-tender, non-distended, no rebound/guarding, normal bowel sounds present Musculoskeletal: normal ROM, no peripheral edema Skin: warm and dry, intact, no rashes Neuro: CN II-XII intact, no focal deficits Results: Labs 08/13/24 13:40 08/13/24 13:40 Labs: Short CBC 08/13/24 Range/Units 13:40 WBC 20.2 H (3.6-11.0) Thou/mm3 Hgb 11.7 L (12.0-16.0) g/dL Hct 33.6 L (36.0-46.0) % Plt Count 134 L (140-440) Thou/mm3 BMP 08/13/24 13:40 Sodium 140 Potassium 4.1 Chloride 96 L Carbon Dioxide 31.0 BUN 47 H Creatinine 2.5 H Glucose 158 H Calcium 8.7 Liver Function 08/13/24 Range/Units 13:40 Total Bilirubin 0.7 (0.3-1.2) mg/dL AST 22 (0-34) U/L ALT 14 (10-49) U/L Alkaline Phosphatase 83 (46-116) U/L Albumin 4.3 (3.4-4.8) gm/dL Urine 08/13/24 Range/Units 13:55 Urine Color Yellow (Lt Yel-Yel) Urine Clarity Hazy (Clear/Hazy) Urine pH 7.5 H (5.0-7.0) Ur Specific Duarte 1.014 (1.001-1.035) Urine Protein Trace (Neg - Trace) Urine Glucose (UA) Negative (Negative) Quality Measures Quality Measures VTE prophylaxis Advance care planning discussed with:: patient Medications Home Medications and Allergies Home Medications ?Medication ?Instructions ?Recorded ?Confirmed ?Type Levothyroxine * (SYNTHROID *) 1 tab PO QDAY Thyroid ## 30 02/23/17 10/23/23 History valsartan 160 mg tablet 160 mg PO DAILY 10/23/23 History ergocalciferol (vitamin D2) 1,250 1,250 mcg PO QWEEK 0 10/24/23 10/24/23 History mcg (50,000 unit) capsule (Vitamin D2) tramadol 50 mg tablet 50 mg PO Q8H PRN Pain, Sever e 10/24/23 10/24/23 History Allergies Allergy/AdvReac Type Severity Reaction Status Date / Time No Known Allergies Allergy Verified 08/13/24 12:42 Visit Medications Acetaminophen (Acetaminophen 325 Mg Tablet) 650 mg PO Q6H PRN PRN Reason: PAIN OR FEVER > 100.4 Stop: 09/12/24 16:28 Sodium Chloride (Ns) 1,000 mls @ 999 mls/hr IV .Q1H1M ONE Stop: 08/13/24 16:47 Last Admin: 08/13/24 16:18 Dose: 999 mls/hr Lactated Ringer's (Lactated Ringers) 1,000 mls @ 50 mls/hr IV .Q20H RJ Stop: 09/12/24 16:29 Ceftriaxone Sodium/Dextrose (Rocephin/D5w 1gm Iv Premix) 1 gm in 50 mls @ 100 mls/hr IV QDAY RJ Stop: 08/20/24 16:41 Ondansetron HCl (Ondansetron Inj 2 Mg/Ml Inj 2 Ml) 4 mg IVP Q6H PRN; Protocol PRN Reason: NAUSEA OR VOMITING Stop: 09/12/24 16:28 Discontinued Medications Ceftriaxone Sodium/Dextrose (Rocephin/D5w 1gm Iv Premix) 1 gm in 50 mls @ 100 mls/hr IV X1 ONE Stop: 08/13/24 16:20 Last Admin: 08/13/24 16:17 Dose: 100 mls/hr Ondansetron HCl (Ondansetron Odt 4 Mg Tabrap) 4 mg PO X1 ONE; Protocol Stop: 08/13/24 15:48 Last Admin: 06/04/25 16:19 Dose: 4 mg Assessment & Plan Plan Mariela Rehman is a 68-year-old female with a past medical history of recurrent SBO, chronic UTIs, urinary retention (self-catheterization, follows urologist in [place]), hypothyroidism, hypertension, and CKD (follows Dr. Shafer) who presents with chief complaint of nausea, vomiting, abdominal pain and admitted for further management of SBO. #Small bowel obstruction #History of recurrent small bowel obstructions Presents with chief complaint of nausea, vomiting, abdominal pain. She states that she has had the symptoms since 08/04 but her last bowel movement was this morning and passing gas but CT A/P in the ED showed small bowel obstruction pattern. Given history of urinary retention, patient states that at times she believes that it may contribute to her recurrent obstructions. ? NG tube on LIS ? N.p.o. ? Small bowel series ? LR at 50 cc/h ? Zofran for nausea #Acute on chronic kidney injury #Chronic kidney disease, stage III-IV Creatinine on admission 2.5, baseline appears to be 1.7-2.0. ? IVF as above ? Avoid nephrotoxic agents when possible, renally dose medications #Urinary tract infection #History of recurrent UTI #Urinary retention ? Ceftriaxone 1 g IV daily (08/13-) ? Follow-up urine culture ? Zeng placed #Hypothyroidism ? Levothyroxine 158 mcg #Hypertension ? Valsartan 160 mg p.o. daily -> HELD given TREVER Hospital management: Disposition: N.p.o., small bowel series for SBO Fluids: LR at 50 cc/h Diet: N.p.o. Lines: PIV DVT prophylaxis: SCDs Zeng: Placed CODE STATUS: full code ----- Plan discussed with attending physician Dr. Luisa Felix MD PGY-1 Internal Medicine
--- NOTE | 2024-08-13 16:47 | EDNOTE_ITS ---
Nausea/Vomit./Diarrhea-RME/HPI General Chief complaint: Flu Like Symptoms Stated complaint: Vomiting x 1 week Arrival date/time: 08/13/24 12:39 RME / HPI RME / HPI Narrative: 08/13/24 12:39 68-year-old female presents to the emergency department today complains of abdominal pain nausea vomiting DR. PERRY MAIN ED EVALUATION: 68 year old female with history hypertension, hypothyroidism, CKD, recurrent UTIs, previous emergency in the 70s and lap appendectomy presents to the ED for evaluation of nausea and vomiting 1 week ago. Accompanied by increasing abdominal distention and decreased bowel movements. Patient states she had a bowel movement this morning and was significantly smaller in volume than usual. Patient unable to recall when she last passed gas. Denies fevers, chills, or urinary symptoms. Related Data Home Medications ?Medication ?Instructions ?Recorded ?Confirmed Levothyroxine * (SYNTHROID *) 1 tab PO QDAY Thyroid ## 30 02/23/17 10/23/23 valsartan 160 mg tablet 160 mg PO DAILY 10/23/23 ergocalciferol (vitamin D2) 1,250 1,250 mcg PO QWEEK 0 10/24/23 10/24/23 mcg (50,000 unit) capsule (Vitamin D2) tramadol 50 mg tablet 50 mg PO Q8H PRN Pain, Sever e 10/24/23 10/24/23 Previous Rx's ?Medication ?Instructions ?Recorded ondansetron 4 mg disintegrating 4 mg PO Q8H PRN nausea and 10/25/23 tablet vomiting #20 tabs Allergies Allergy/AdvReac Type Severity Reaction Status Date / Time No Known Allergies Allergy Verified 08/13/24 12:42 Review of Systems Review of Systems Systems Reviewed: All systems reviewed, normal except as documented Past Medical History Past Medical History CARDIAC: Positive Hypertension GASTROINTESTINAL: Positive Gastrointestinal Disorders (diarrhea and bloating) GENITOURINARY: Positive Genitourinary Disorders (self cath urine retention) and Renal Disease (renal insuff) MUSCULOSKELETAL: Positive Arthritis ENDOCRINE: Positive Endocrine Disorders and Hypothyroidism Family History FAMILY HISTORY: Positive Family Cancer (PT'S BROTHER COLON CANCER) Surgical History SURGICAL: Positive Section Social History SMOKING STATUS: Never smoker SUBSTANCE USE: does not use ED Exam Narrative Physical exam: GENERAL APPEARANCE: AxOx4, nontoxic appearing HEENT: NC, AT. MMM. EOMI, clear conjunctiva, oropharynx clear. NECK: Supple without lymphadenopathy. No stiffness or restricted ROM. HEART: Normal rate and regular rhythm, normal S1/S1, no m/r/g LUNGS: CTAB, moving air well. No crackles or wheezes are heard. ABDOMEN: Soft, distended with diffuse pain and tympanitic BACK: No midline C/T/L spine pain or deformity, No CVAT, no obvious deformity. EXTREMITIES: Without cyanosis, clubbing or edema. MUSCULOSKELETAL: FROM of all major joints, no chest tenderness NEUROLOGICAL: Grossly nonfocal. Alert and oriented, moving all 4 extremities. CN not formally tested but appear grossly intact. Skin: Warm and dry without any rash. Course Quality Measures none Orders Category Date Time Status Patient Condition Routine Admission 08/13/24 16:[address] in Observation Status Routine Admission 08/13/24 16:30 Active COVID-19 Screening Questionnaire NOW Care 08/13/24 15:58 Active Decision to Admit X1 Care 08/13/24 15:58 Active NPO NOW Care 08/13/24 16:30 Active Notify provider NEEDED Care 08/13/24 16:29 Active Sequential Compression Device QSHIFT Care 08/13/24 16:29 Active Strict Intake and Output Routine Care 08/13/24 16:30 Ordered Urinary Catheter QS Care 08/13/24 16:29 Active Diet NPO (NOW) Diet 08/13/24 16:[address] abdomen pelvis wo con Stat Exams 08/13/24 13:19 Completed Basic Metabolic Panel AM DRAW Lab 08/14/24 05:00 Ordered Basic Metabolic Panel AM DRAW Lab 08/15/24 05:00 Ordered Basic Metabolic Panel AM DRAW Lab 08/16/24 05:00 Ordered Blood Culture (Lab) Stat Lab 08/13/24 16:02 Received CBC AM DRAW Lab 08/14/24 05:00 Ordered CBC AM DRAW Lab 08/15/24 05:00 Ordered CBC AM DRAW Lab 08/16/24 05:00 Ordered CBC Stat Lab 08/13/24 13:40 Completed Comprehensive Metabolic Panel Stat Lab 08/13/24 13:40 Completed Lipase Stat Lab 08/13/24 13:40 Completed Magnesium AM DRAW Lab 08/14/24 05:00 Ordered Magnesium AM DRAW Lab 08/15/24 05:00 Ordered Magnesium AM DRAW Lab 08/16/24 05:00 Ordered Phosphorous AM DRAW Lab 08/14/24 05:00 Ordered Phosphorous AM DRAW Lab 08/15/24 05:00 Ordered Phosphorous AM DRAW Lab 08/16/24 05:00 Ordered Thyroid Stimulating Hormone AM DRAW Lab 08/14/24 05:00 Ordered UA, C/S IF [Urinalysis, C/S if Indicated] Stat Lab 08/13/24 13:55 Completed Urine Culture Stat Lab 08/13/24 13:55 Received Acetaminophen Tab [Tylenol Tab] Med 08/13/24 16:29 Active 650 mg PO Q6H PRN Ondansetron Inj [Zofran Inj] Med 08/13/24 16:29 Active 4 mg IVP Q6H PRN Ondansetron Odt [Zofran Odt] Med 08/13/24 15:47 Discontinued 4 mg PO X1 ONE Ringers Lactated 1000 ml [Lactated Ringers] 1,000 ml Med 08/13/24 16:30 Active IV 50 mls/hr Sodium Chloride 0.9% 1000 ml [Ns] 1,000 ml Med 08/13/24 15:47 Discontinued IV 999 mls/hr cefTRIAXone/D5w 1gm IV premix [Rocephin/D5w 1gm IV Med 08/13/24 15:51 Discontinued premix] 1 gm in 50 ml IV X1 Code Status Routine Oth 08/13/24 16:29 Ordered Vital Signs Vital signs: Vital Signs Temperature 98.6 F 08/13/24 13:19 Pulse Rate 93 08/13/24 13:19 Respiratory Rate 20 08/13/24 13:19 Blood Pressure 91/59 L 08/13/24 13:19 Pulse Oximetry (%) 99 08/13/24 13:19 Oxygen Delivery Method Room Air 08/13/24 13:19 Pulse ox is 99% on room air which is adequate. Nausea/Vomiting/Diarrhea MDM Narrative MDM Narrative:: Jessi Aldridge am scribing for and in the presence of Dr. Perry. Patient data External records reviewed:: [facility] previous records (I reviewed ED visit on 04/25/2024 ) Clinical information provided by:: patient Social determinants that could affect healthcare access:: none Patient has the following chronic illnesses:: hypertension, hypothyroidism, CKD, recurrent UTIs, previous emergency in the 70s and lap appendectomy How is presenting disease/condition affected by chronic disease/condition?: exacerbated by Evaluation data The following diagnostics were reviewed and interpreted by me:: lab results and radiology exam(s) Lab and/or radiology exams considered but not ordered:: None Interpretation Summary: Ordering Physician: Darvin CELAYA)Mike NP Date of Service: 08/13/24 Procedure(s): CT abdomen pelvis wo con Accession Number(s): [id number] cc: Darvin CELAYA),Mike CORNEJO; Brant Castano MD~ Examination: CT abdomen and pelvis without contrast. Coronal 3-D reconstructions. Sagittal 2-D reconstructions. Date and time of exam:01/13/2025 1411 hours Comparison April 25, 2024 INDICATIONS: Generalized abdominal pain vomiting and nausea beginning one week ago CTDI: vol (mGy): 5.35 DLP: (mGycm): 284 Technique: Axial images of the abdomen have been obtained, 3 mm slice thickness Intravenous contrast material has not been administered. Low dose protocols were performed. One or more of the following dose reduction techniques were used; automated exposure control, adjustment of the mA and/or KV according to patient size, use of iterative reconstruction technique. Findings: Nodular parenchymal disease in the right middle lobe image 28 No focal liver or splenic lesions No definite gallstones Aorta in the abdomen is not enlarged No pancreatic mass Multiple fluid distended small bowel loops No diverticulitis No hernia defect Appendix appears partially visualized and not enlarged Advanced disc narrowing L4-L5 IMPRESSION: Small bowel obstruction pattern, consider Gastrografin small bowel series follow-up Dictated By:Brant Castano MD Signed By: <Electronically signed by Brant Castano MD in OV08/13/24 1431 Ordering Physician: Zhen Moran MD Date of Service: 08/13/24 Procedure(s): XR chest 1V portable Accession Number(s): [id number] cc: Brant Castano MD; Zhen Moran MD; Eliza Groves MD~ Examination: AP chest single view TECHNIQUE: Portable semiupright AP chest single view Date and time: August 13, 2024, 1710 hours Comparison April 25, 2024 INDICATIONS: Post orogastric tube placement FINDINGS: Orogastric tube in stomach satisfactory position Moderate vascular congestion. No lobar pneumonia IMPRESSION: Orogastric tube tip in the stomach satisfactory position Dictated By:Brant Castano MD Signed By:<Electronically signed by Brant Castano MD in OV>08/13/24 1723 Medications / Prescriptions Medications / Prescriptions considered but not ordered:: none Medication administrations:: Medication Administration History Acetaminophen (Acetaminophen 325 Mg Tablet) 650 mg PO Q6H PRN PRN Reason: PAIN OR FEVER > 100.4 Stop: 09/12/24 16:28 Lactated Ringer's (Lactated Ringers) 1,000 mls @ 50 mls/hr IV .Q20H RJ Stop: 09/12/24 16:29 Last Admin: 08/13/24 17:32 Dose: 50 mls/hr Documented By: HARI Ceftriaxone Sodium/Dextrose (Rocephin/D5w 1gm Iv Premix) 1 gm in 50 mls @ 100 mls/hr IV QDAY RJ Stop: 08/21/24 08:59 Labetalol HCl (Labetalol Inj 5 Mg/Ml Vial 20 Ml) 10 mg IVP Q6H PRN PRN Reason: Hypertension Stop: 09/12/24 17:14 Levothyroxine Sodium 125 mcg/ (Levothyroxine Sodium 25 mcg) 150 mcg PO ACBR [facility] Stop: 09/13/24 05:59 Ondansetron HCl (Ondansetron Inj 2 Mg/Ml Inj 2 Ml) 4 mg IVP Q6H PRN; Protocol PRN Reason: NAUSEA OR VOMITING Stop: 09/12/24 16:28 Discontinued Medications Sodium Chloride (Ns) 1,000 mls @ 999 mls/hr IV .Q1H1M ONE Stop: 08/13/24 16:47 Last Infusion: 08/13/24 17:06 Dose: Infused Documented By: Admin: 08/13/24 16:18 Dose: 999 mls/hr Documented By: HARI Ceftriaxone Sodium/Dextrose (Rocephin/D5w 1gm Iv Premix) 1 gm in 50 mls @ 100 mls/hr IV X1 ONE Stop: 08/13/24 16:20 Last Infusion: 08/13/24 17:06 Dose: Infused Documented By: Admin: 08/13/24 16:17 Dose: 100 mls/hr Documented By: HARI Levothyroxine Sodium (Levothyroxine Sodium 125 Mcg Tablet) 150 mcg PO ACBR RJ Stop: 09/13/24 05:59 Ondansetron HCl (Ondansetron Odt 4 Mg Tabrap) 4 mg PO X1 ONE; Protocol Stop: 08/13/24 15:48 Last Admin: 08/13/24 16:19 Dose: 4 mg Documented By: HARI See above Consultations Consultation(s) initiated? (list below): Yes Consultation #1 (Physician, Specialty, Details): I spoke with resident working with Dr. Moran. Discussed patients PMHx, HPI, ED course, exam findings, labs, and radiology results. The hospitalist agree to accept the patient for admission. Time: 15:55 Diagnosis Nausea Differential Diagnosis: gastroenteritis, clostridium difficile infection, drug-induced nausea and vomiting, dehydration and other (SBO) Most likely diagnosis given after review of the tests above:: SBO Admission Indicated Admission indicated?: indicated Admission Request Was there a request for admission?: Yes Admission Attestation Admission request attestation: Discussed case with [] from Hospitalist service regarding admission. Discussed patients ED course, exam findings, labs, and radiology results. The Hospitalist [agrees,declines] to accept the patient for admission. Disposition Plan Disposition Plan: Admit Discharge Plan Plan Patient Disposition: Admit Acute Care w/in Hospital Problem List Clinical Impression: SBO (small bowel obstruction)
--- NOTE | 2024-08-13 17:04 | XR_ITS ---
Examination: AP chest single view TECHNIQUE: Portable semiupright AP chest single view Date and time: August 13, 2024, 1710 hours Comparison April 25, 2024 INDICATIONS: Post orogastric tube placement FINDINGS: Orogastric tube in stomach satisfactory position Moderate vascular congestion. No lobar pneumonia IMPRESSION: Orogastric tube tip in the stomach satisfactory position
[2024-08-13] MEDS: RINGERS LACTATED 1000 ML 1,000 ML 50 ML IV (17:32)
[2024-08-13 18:40] VITALS: BP 98/54; PULSE 88; RESP 18; TEMP 36.8; O2SAT 97
--- NOTE | 2024-08-13 19:21 | PC.NURSE ---
REPORT GIVEN TO NADYA SUERO
[2024-08-13 19:34] VITALS: BP 103/58; PULSE 91; RESP 16; O2SAT 96
--- NOTE | 2024-08-13 20:45 | XR_ITS ---
Examination: Abdomen AP single view Technique: AP portable supine abdomen, single view Exam date and time: August 13, 2024, 8:36 PM INDICATIONS: Abdominal pain and distention this week, 3 hour delayed film post small bowel series today FINDINGS: Contrast remains in the stomach IMPRESSION: Contrast remains in the stomach
--- NOTE | 2024-08-13 22:40 | PC.NURSE ---
REPORT GIVEN TO SHARI SUERO AT [facility].
--- NOTE | 2024-08-13 22:45 | XR_ITS ---
Examination: Abdomen AP single view Technique: AP portable supine abdomen, single view Exam date and time: August 13, 2024 10:40 PM INDICATIONS: 5 Delayed film for small bowel series today, abdominal pain and distention this week FINDINGS: Contrast remains in the stomach IMPRESSION: Contrast remains in the stomach, additional films will be obtained
[2024-08-13 23:00] VITALS: BMI 22.6
[2024-08-14] VITALS: BP 106/66; PULSE 90; RESP 16; TEMP 37.2; O2SAT 94
--- NOTE | 2024-08-14 01:45 | XR_ITS ---
Examination: Abdomen AP single view Technique: AP portable supine abdomen, single view Exam date and time: August 14, 2024, 0143 hours INDICATIONS: Abdominal distention this week, 8 hour delayed film for small bowel series today FINDINGS: Contrast in the stomach and in a few loops of small bowel IMPRESSION: Findings are not diagnostic for small bowel obstruction, additional delayed films will be obtained
[2024-08-14 04:00] VITALS: BP 94/55; PULSE 73; RESP 17; TEMP 37.2; O2SAT 94
--- NOTE | 2024-08-14 04:45 | XR_ITS ---
Examination: Abdomen AP single view Technique: AP portable supine abdomen, single view Exam date and time: August 14, 2024, 0446 hours INDICATIONS: Abdominal distention this week, 11 hour delayed film post small bowel series FINDINGS: Contrast in nondistended small bowel loops IMPRESSION: Findings most consistent with small bowel ileus Recommend follow-up abdomen film at this time
--- NOTE | 2024-08-14 05:53 | PC.NURSE ---
Pt wanted to pull out NGTube saying that abd xray/series is done and pt also asking for some water. Notify MD Presley of pt's complain. does not want to remove NGTube and stated pt still NPO.
[2024-08-14 06:02] LABS: Anion Gap 9 (7-16); BUN/Creatinine Ratio 18 Ratio (12-20); Blood Urea Nitrogen 36 mg/dL (9-23); Carbon Dioxide 28.5 mMol/L (20.0-31.0); Chloride 108 mMol/L (98-107); Estimated Creatinine Clearance 18.6 mL/min (>60); Glucose 76 mg/dL (74-106); Magnesium 1.8 mg/dL (1.6-2.6); Osmolality,Calculated 296 (275-295); Phosphorous 3.2 mg/dL (2.4-5.1); Potassium 4.5 mMol/L (3.4-5.1); Sodium 145 mMol/L (136-145); Thyroid Stimulating Hormone 0.27 uIU/mL (0.55-4.78); eGFR 27 See Note
[2024-08-14 06:03] LABS: Basophils % (Auto) 0 % (0-2.5); Eosinophils # (Auto) 0.1 Thou/mm3 (0.0-0.5); Eosinophils % (Auto) 1 % (0-10); Hematocrit 28.9 % (36.0-46.0); Hemoglobin 9.9 g/dL (12.0-16.0); Immature Granulocytes % (Auto) 0 % (0-0); Immature Granulocytes Auto 0.05 Thou/mm3 (0.00-0.00); Lymphocytes # (Auto) 1.7 Thou/mm3 (1.0-4.8); Lymphocytes % (Auto) 14 % (10-50); Mean Corpuscular HGB Conc 34.3 g/dl (31.0-37.0); Mean Corpuscular Hemoglobin 29.2 pg (25.0-35.0); Mean Corpuscular Volume 85 fL (80-100); Monocytes # (Auto) 0.6 Thou/mm3 (0.0-0.8); Monocytes % (Auto) 5 % (0-12); Neutrophils # (Auto) 9.4 Thou/mm3 (1.8-7.7); Neutrophils % (Auto) 80 % (37-80); Nucleated Red Blood Cell % 0 /100 WBC (0); Platelet Count 116 Thou/mm3 (140-440); RDW Standard Deviation 41.5 fL (36.4-46.3); Red Blood Count 3.39 Miln/mm3 (4.00-5.20); White Blood Count 11.8 Thou/mm3 (3.6-11.0)
[2024-08-14 08:00] VITALS: BP 107/64; PULSE 71; RESP 16; TEMP 36.9; O2SAT 95
--- NOTE | 2024-08-14 08:30 | XR_ITS ---
Examination: Abdomen AP single view Technique: AP portable supine abdomen, single view Exam date and time: August 14, 2024 0826 hours INDICATIONS: 15 hour delayed film post small bowel series yesterday, abdominal pain and distention this week. FINDINGS: Contrast is now present in the colon IMPRESSION: Negative for small bowel obstruction
[2024-08-14] MEDS: cefTRIAXone/D5w 1gm IV premix 1 GM/50 ML BAG IV (09:16)
--- NOTE | 2024-08-14 09:58 | PC.SS ---
Mariela Rehman is a 68-year-old female admitted to Med Surg for SBO. SS conducted bedside contact with the patient to complete initial assessment and to discuss discharge planning. Role and reason explained. Patient confirmed demographic information. Patient identifies Shaw Rehman [phone] as her surrogate decision maker. Pt states she is able to complete all ADL?s independently. No need for any source of DME. Pts PCP is Dr. Gomez (last vist 08/13/24). Pharmacy of choice is [facility]. Discharge options discussed and the pt wishes to return home.? Family will provide transportation upon DC. No further intervention required at this time, psych social worker would be available to address any further concerns. DC Plan: Home Contact: Shaw PCP: Jason
--- NOTE | 2024-08-14 11:16 | ESDS_ITS ---
<Statement entered by Zhen Moran MD - 08/21/24 13:35> I reviewed above note and agree with findings and plans. I have also personally examined the patient with medicine team and went over assessment and plan with medical team including spring intern and resident physician. Planned Discharge Date 08/14/24 DS: Providers Provider Date of admission: 08/13/24 16:30 Primary care physician: vEa Wahl MD Admitting Provider: Zhen Moran MD Attending Provider on Admission: Zhen Moran MD Attending Provider on DC: Micheal Felix MD Discharging Provider: Micheal Felix MD DS: Diagnosis Problem List Completed Was Problem List Reviewed/Reconciled?: Yes Hospital Course Hospital Course Hospital course: Mariela Rehman is a 68-year-old female with a past medical history of recurrent SBO, chronic UTIs, urinary retention (self-catheterization, follows urologist in [place]), hypothyroidism, hypertension, and CKD (follows Dr. Shafer) who presents with chief complaint of nausea, vomiting, abdominal pain. She states that she has had the symptoms since 08/04 but her last bowel movement was this morning and passing gas but CT A/P in the ED showed small bowel obstruction pattern. Given history of urinary retention, patient states that at times she believes that it may contribute to her recurrent obstructions. She states that she self caths herself every day, around 3 times per day. At tributes her recurrent urinary tract infections and urological issues from complications after . Her only abdominal surgery is an appendectomy many years ago. Of note, patient does have an appointment at [place] on Sunday regarding her recurrent SBO's. On admission, she was made n.p.o., started NGT on LIS, and small bowel series obtained. She did not have any episodes of nausea or vomiting and on following day, denied any abdominal pain and able to pass gas. Small bowel series was completed and negative for small bowel obstruction. Thus, NGT was discontinued and she was started on diet and tolerated well and deemed stable for discharge given vital stable, CBC showed improvement of leukocytosis from 20 to 11, improved creatinine from 2.5 to 2.0. Urine culture started growing GNR while on ceftriaxone, recommended patient to continue her outpatient antibiotic regimen of Bactrim. Diagnoses during admission: #Small bowel obstruction, resolved #History of recurrent small bowel obstructions #Acute on chronic kidney injury, improving #Chronic kidney disease, stage III-IV #Urinary tract infection #History of recurrent UTI #Urinary retention #Hypothyroidism #Hypertension Discharge instructions: ? Continue taking all home medications as prescribed ? Follow-up with PCP within 1-2 weeks of discharge ? If you do not have a PCP, you can follow-up at the [facility] (you can call [phone] to make an appointment) _ take antibiotics for UTI, follow with PCP for final urine culture results ? If you wish to follow-up with Dr. Felix, schedule appointment on Sundays ? Return to ED if symptoms worsen or recur ----- Plan discussed with attending physician Dr. Luisa Felix MD PGY-1 Internal Medicine Time Spent with Patient Time attestation: Total time spent providing and/or coordinating discharge services: Time spent: Greater than 30 minutes Exam Vital Signs Temp Pulse Resp BP Pulse Ox O2 Del Method 98.5 F 71 16 107/64 95 Room Air 08/14/24 08:00 08/14/24 08:00 08/14/24 08:00 08/14/24 08:00 08/14/24 08:00 08/14/24 08:00 Narrative Exam General: AOx3, no acute distress, able to speak full sentences HEENT: NC/AT, mucous membranes moist, bilateral sclera anicteric Cardiovascular: regular rate and rhythm, S1/S2 present, no murmurs appreciated Pulmonary: clear to auscultation bilaterally, no rales/rhonchi/wheezes Abdominal: soft, non-tender, non-distended, no rebound/guarding, normal bowel sounds present Musculoskeletal: normal ROM, no peripheral edema Skin: warm and dry, intact, no rashes Neuro: CN II-XII intact, no focal deficits Discharge Plan Plan Patient Disposition: HOME (Self Care) Care Plan Goals: ? Continue taking all home medications as prescribed ? Follow-up with PCP within 1-2 weeks of discharge ? If you do not have a PCP, you can follow-up at the [facility] (you can call [phone] to make an appointment) _ take antibiotics for UTI, follow with PCP for final urine culture results ? If you wish to follow-up with Dr. Uto, schedule appointment on Wednesday afternoons ? Return to ED if symptoms worsen or recur Prescriptions/Referrals Prescriptions/Med Rec: Continued Levothyroxine * (SYNTHROID *) 150 mcg tablet 1 tab PO QDAY Qty: 30 tramadol 50 mg Tablet 50 mg PO Q8H PRN (Reason: Pain, Severe) ondansetron 4 mg tablet,disintegrating 4 mg PO Q8H PRN (Reason: nausea and vomiting) Qty: 20 0RF tizanidine 4 mg tablet 4 mg PO Q8H PRN (Reason: back pain) Patient Comments: TAKE 1 TABLET BY MOUTH THREE TIMES A DAY NEEDED sulfamethoxazole-trimethoprim 800-160 mg tablet 1 tab PO QDAY Patient Comments: TAKE 1 TABLET BY MOUTH EVERY DAY diphenoxylate-atropine 2.5-0.025 mg tablet 1 tab PO QID PRN (Reason: diarrhea) Referrals: Eva Wahl MD [Primary Care Provider] - Patient/Caregiver Discharge Instructions Print Language: Yoruba Stand Alone Forms: [employer]iley Award Info., Patient Portal Info Letter, Work/Release Restrictions Discharge Order Discharge Orders: Discharge (Routine); Ordered 08/14/24 Ordered By: Kaylan Salmon Quality Discharge Quality Measures VTE prophylaxis
[2024-08-14 12:00] VITALS: BP 91/63; PULSE 85; RESP 17; TEMP 37.1; O2SAT 93
== END 2024-08-14 13:57 | disposition home or self-care (01) ==
LOC: SERX 14:41 → SERHOLD 18:40 → S3SX 08-14 07:58
PROVIDERS: Nurse Practitioner Primary Care; Admitting Provider Internal Medicine; Emergency Provider Emergency Medicine; PCP Internal Medicine; Visit Provider Internal Medicine
DX: K56.609 Unspecified intestinal obstruction, unspecified as to partial versus complete obstruction (principal); R33.9 Retention of urine, unspecified; D64.9 Anemia, unspecified; E03.9 Hypothyroidism, unspecified; I12.9 Hypertensive chronic kidney disease with stage 1 through stage 4 chronic kidney disease, or unspecified chronic kidney disease; N17.9 Acute kidney failure, unspecified; N18.30 Chronic kidney disease, stage 3 unspecified; N39.0 Urinary tract infection, site not specified; Z87.440 Personal history of urinary (tract) infections; Z90.49 Acquired absence of other specified parts of digestive tract
CPT/HCPCS: 51702; 36415; 71045; 74018; 74176; 74250; 80048; 80053; 81001; 83690; 83735; 84100; 84443; 85025; 87040; 87077; 87086; 87186; 96365; 99285; A4314; G0378; J0696; J7030; J7120; Q0162; Q9963

== ENCOUNTER → 2025-01-13 | Outpatient (CLI) | payer MEDICARE, SELFPAY ==
[2025-01-13 11:23] LABS: Collection Type, Urine Clean Catch
[2025-01-13 11:43] LABS: Basophils # (Auto) 0.0 Thou/mm3 (0.0-0.2); Basophils % (Auto) 0 % (0-2.5); Eosinophils # (Auto) 0.0 Thou/mm3 (0.0-0.5); Eosinophils % (Auto) 0 % (0-10); Hematocrit 35.6 % (36.0-46.0); Hemoglobin 11.7 g/dL (12.0-16.0); Immature Granulocytes Auto 0.02 Thou/mm3 (0.00-0.00); Lymphocytes # (Auto) 1.6 Thou/mm3 (1.0-4.8); Lymphocytes % (Auto) 27 % (10-50); Mean Corpuscular HGB Conc 32.9 g/dl (31.0-37.0); Mean Corpuscular Hemoglobin 28.9 pg (25.0-35.0); Mean Corpuscular Volume 88 fL (80-100); Monocytes # (Auto) 0.2 Thou/mm3 (0.0-0.8); Monocytes % (Auto) 4 % (0-12); Neutrophils # (Auto) 4.2 Thou/mm3 (1.8-7.7); Neutrophils % (Auto) 69 % (37-80); Nucleated Red Blood Cell # 0.00 Thou/mm3 (0.00-0.00); Nucleated Red Blood Cell % 0 /100 WBC (0); Platelet Count 183 Thou/mm3 (140-440); RDW Standard Deviation 42.5 fL (36.4-46.3); Red Blood Count 4.05 Miln/mm3 (4.00-5.20); White Blood Count 6.1 Thou/mm3 (3.6-11.0)
[2025-01-13 12:00] LABS: Albumin, Serum 4.5 gm/dL (3.4-4.8); Anion Gap 9 (7-16); BUN/Creatinine Ratio 11 Ratio (12-20); Blood Urea Nitrogen 21 mg/dL (9-23); Calcium 9.1 mg/dL (8.3-10.6); Calcium (Corrected) 9.1 mg/dL (8.5-10.1); Carbon Dioxide 25.9 mMol/L (20.0-31.0); Chloride 106 mMol/L (98-107); Creatinine (Component) 2.0 mg/dL (0.6-1.3); Glucose 107 mg/dL (74-106); Osmolality,Calculated 284 (275-295); Phosphorous 3.6 mg/dL (2.4-5.1); Potassium 4.8 mMol/L (3.4-5.1); Sodium 141 mMol/L (136-145); eGFR 27 See Note
[2025-01-13 12:03] LABS: Bacteria,Urine 1+; Bilirubin,Urine Negative (Negative); Blood,Urine Trace (Negative); Color,Urine Yellow (Lt Yel-Yel); Glucose, Urine Negative (Negative); Hyaline Casts,Urine < 1 /hpf (0-1); Ketones,Urine Negative (Negative); Leukocyte Esterase,Urine Positive (Negative); Nitrite,Urine Negative (Negative); PH,Urine 6.0 (5.0-7.0); Protein,Urine Negative (Neg - Trace); RBC,Urine 4 /hpf (0-3); Specific Gravity,Urine 1.014 (1.001-1.035); Squamous Epithelial Cell,Urine 1 /hpf (0-5); Urobilinogen,Urine Negative mg/dL (0.0-1.0); WBC,Urine 246 /hpf (0-5)
[2025-01-13 12:30] LABS: Parathyroid Hormone Intact 75.2 pg/ml (18.5-88.0)
[2025-01-13 12:31] LABS: Clarity,Urine Hazy (Clear/Hazy)
[2025-01-13 12:34] LABS: Vitamin D 25 Hydroxy Total 45.6 ng/mL (7.3-40.2)
== END | disposition home or self-care (01) ==
LOC: COPL 10:34
PROVIDERS: PCP Internal Medicine; Referring Provider Internal Medicine Nephrology; Visit Provider Internal Medicine Nephrology
DX: I12.9 Hypertensive chronic kidney disease with stage 1 through stage 4 chronic kidney disease, or unspecified chronic kidney disease (principal); N18.32 Chronic kidney disease, stage 3b; K58.9 Irritable bowel syndrome, unspecified
CPT/HCPCS: 36415; 80069; 81001; 82306; 83970; 85025

== ENCOUNTER 2025-02-01 09:58 | Emergency (ER) | payer MEDICARE, SELFPAY ==
[2025-02-01 10:41] VITALS: BP 119/76; PULSE 93; RESP 18; TEMP 36.8; O2SAT 100; BMI 19.9
--- NOTE | 2025-02-01 11:09 | EDNOTE_ITS ---
ED General RME/HPI General Chief complaint: General Adult/Misc Complain Stated complaint: G-TUBE CAME OUT Time Seen by Provider: 02/01/25 10:29 Arrival date/time: 02/01/25 09:58 CC: The G-tube came out HPI patient said the G-tube in for 3 months is the first time having a G-tube denies any bleeding fever chills nausea vomiting headache shortness of breath or difficulty breathing.. The stomach surgery and G-tube placed at [place] 3 months ago. Related Data Home Medications ?Medication ?Instructions ?Recorded ?Confirmed Levothyroxine * (SYNTHROID *) 1 tab PO QDAY Thyroid ## 30 02/23/17 08/14/24 tramadol 50 mg tablet 50 mg PO Q8H PRN Pain, Sever e 10/24/23 08/14/24 diphenoxylate-atropine 2.5 1 tab PO QID PRN diarrhea 0 08/14/24 08/14/24 mg-0.025 mg tablet sulfamethoxazole 800 1 tab PO QDAY 08/14/2408/14 mg-trimethoprim 160 mg tablet tizanidine 4 mg tablet 4 mg PO Q8H PRN back pain 08/14/24 Previous Rx's ?Medication ?Instructions ?Recorded ondansetron 4 mg disintegrating 4 mg PO Q8H PRN nausea and 10/25/23 tablet vomiting #20 tabs Allergies Allergy/AdvReac Type Severity Reaction Status Date / Time No Known Allergies Allergy Verified 02/01/25 10:00 Review of Systems Review of Systems Narrative Review of Systems: GEN: No fever, no chills, no weight loss EYES: No discharge, no visual changes, no pain HEENT: No ear pain, no congestion, no sore throat PULM: No shortness of breath, no cough, no congestion CV: No chest pain, no dyspnea on exertion, no palpitations GI: No nausea, no vomiting, no diarrhea, no pain, no constipation : No frequency, no urgency, no dysuria MUSC/SKEL: No joint pain, no back pain SKIN: No rash PSYCH: No hallucinations, no depression HEME/LYMPH: No easy bleeding or bruising tendencies NEURO: No weakness, no headache Past Medical History Past Medical History NEUROLOGIC: Negative Neurological Disorders or Seizures CARDIAC: Positive Hypertension; Negative Cardiac Disorders or Congestive Heart Failure RESPIRATORY: Negative Chronic Obstructive Pulmonary Disease (COPD) GASTROINTESTINAL: Positive Gastrointestinal Disorders GENITOURINARY: Positive Genitourinary Disorders and Renal Disease MUSCULOSKELETAL: Positive Arthritis; Negative Musculoskeletal Disorders ENDOCRINE: Positive Endocrine Disorders and Hypothyroidism; Negative Diabetes Mellitus Type 1 or Diabetes Mellitus Type 2 HEMATOLOGIC: Negative Blood Disorders OTHER HISTORY: Negative Autoimmune Disease, Developmental Delay, Falls, Blood Transfusions, Blood Transfusion Reaction or Anesthesia Reactions Family History FAMILY HISTORY: Positive Family Cancer Surgical History SURGICAL: Positive Section Social History SMOKING STATUS: Never smoker SUBSTANCE USE: does not use ED Exam Narrative Physical exam: [General: Obese not in cot no acute distress Head normocephalic HEENT: Within acceptable limits Neck is supple nontender Chest equal chest rise nontender to palpation Respiratory: Clear to auscultation no wheezes crackles or rubs CV: Rate rhythm is regular no murmurs rubs or clicks Abdomen is soft nontender G-tube stoma is clean dry intact no surrounding bruising or bleeding. No masses positive bowel sounds all 4 quadrants Back: No CVA tenderness no spinous process tenderness from cervical spine thoracic and lumbar spine Skin: G-tube site is clean dry and intact no surrounding erythema edema. Otherwise skin is intact no petechiae rash induration ulceration or crepitus Extremities: Moving all extremities against resistance cap refill less than 2 seconds neurosensory intact Neuro: Awake alert oriented x3 Glascow coma 15 no focal deficits] Course Quality Measures none Orders Category Date Time Status XR abdomen 1V Stat Exams 02/01/25 12:02 Completed Lidocaine Jelly 2% Urojet [Xylocaine Jelly 2% Urojet] Med 02/01/25 11:46 Discontinued See Dose Instructions TOP X1 ONE Vital Signs Vital signs: Vital Signs Temperature 98.2 F 02/01/25 10:41 Pulse Rate 93 02/01/25 10:41 Respiratory Rate 18 02/01/25 10:41 Blood Pressure 119/76 02/01/25 10:41 Pulse Oximetry (%) 100 02/01/25 10:41 Oxygen Delivery Method Room Air 02/01/25 10:41 PROCEDURES: Procedure Comment Patient placed in the supine position, site was cleaned and prepped with Betadine, slightly was mildly probed. Stoma was identified. Attempted x 2 to advance a standard G-tube into the stoma was able to pass through the skin and subcutaneous tissue but not able to advance into the stomach. At that time #14 Zeng was advanced smoothly through the subcutaneous tissue and into the stomach with the immediate gurgling of air, and the retraction of stomach contents using a Jaclyn syringe. Patient tolerated the procedure well, dressing applied. Discharge Plan Plan Patient Disposition: HOME (Self Care) Patient condition on transfer: Stable Prescriptions/Referrals Prescriptions/Med Rec: No Action Levothyroxine * (SYNTHROID *) 150 mcg tablet 1 tab PO QDAY Qty: 30 tramadol 50 mg Tablet 50 mg PO Q8H PRN (Reason: Pain, Severe) ondansetron 4 mg tablet,disintegrating 4 mg PO Q8H PRN (Reason: nausea and vomiting) Qty: 20 0RF tizanidine 4 mg tablet 4 mg PO Q8H PRN (Reason: back pain) Patient Comments: TAKE 1 TABLET BY MOUTH THREE TIMES A DAY NEEDED sulfamethoxazole-trimethoprim 800-160 mg tablet 1 tab PO QDAY Patient Comments: TAKE 1 TABLET BY MOUTH EVERY DAY diphenoxylate-atropine 2.5-0.025 mg tablet 1 tab PO QID PRN (Reason: diarrhea) Referrals: Pasquale Brink MD [Physician, Family Practice] - In 1 week No Primary/Family,Physician [Primary Care Provider] - In 1 week Problem List Clinical Impression: Gastrostomy tube dysfunction Patient/Caregiver Discharge Instructions Other Activity Instructions:: Follow-up with your GI doctor for PEG tube placement if there are any signs of infection around the area where it inserts in the body return immediately to the emergency room for reevaluation. Education Materials: ED Tube Replacement Feeding W Zeng Print Language: Lithuanian Stand Alone Forms: Miley Award Info., Work/School Release, Patient Portal Info Letter PA/[employer] Supervising Physician PA/[employer] Supervising Physician: Alex Brown ENP [facility] Clinical Information Provided by: patient Medical Records reviewed [facility] Medical Records additional comments: Past medical history shows a history of recurrent SBO's chronic UTIs urinary retention hypothyroidism hypertension, CKD note: Followed by [facility] Meds/Rx considered, not ordered None Labs/Rad/Tests considered, not ordered None Chronic Illness/Social Conditions Explain: Recent stomach surgery with G-tube placement at [facility] EKG EKG not done Labs Labs: none Imaging Imaging interpretation: interpreted by me Imaging Interpretation(s): X-ray with Gastrografin shows proper placement in the stomach as interpreted by me Medication Administration(s) Medication Administration History Discontinued Medications Lidocaine HCl (Lidocaine Jelly 2% (Urojet) 10 Ml Tube) 0 ml TOP X1 ONE Stop: 02/01/25 11:47 Last Admin: 02/01/25 12:26 Dose: 10 ml Documented By: ELINA Comments: used by provider
--- NOTE | 2025-02-01 12:02 | XR_ITS ---
Examination: Abdomen AP single view Technique: AP portable supine abdomen, single view Exam date and time: February 01, 2025, 1209 hours INDICATIONS: Unknown position gastrostomy tube. FINDINGS: Gastrostomy tube in the stomach, opacification of the tube in stomach no abnormal extravasation of contrast into the abdomen Prominent ileus pattern IMPRESSION: Gastrostomy tube satisfactory position
[2025-02-01] MEDS: LIDOCAINE JELLY 2% (Urojet) 10 ML TUBE TOP (12:26)
--- NOTE | 2025-02-01 13:26 | PC.NURSE ---
gtube site was cleaned with NS, split gauze dressing applied, paper tape used, pt tolerated well, denies any pain or discomfort.
== END 2025-02-01 13:29 | disposition home or self-care (01) ==
PROVIDERS: Emergency Provider Emergency Medicine
DX: K94.23 Gastrostomy malfunction (principal); E03.9 Hypothyroidism, unspecified; I12.9 Hypertensive chronic kidney disease with stage 1 through stage 4 chronic kidney disease, or unspecified chronic kidney disease; N18.9 Chronic kidney disease, unspecified
CPT/HCPCS: 43762; 74018; 99282